=== PATIENT | female | born 1995 | race Caucasian/White ===

== ENCOUNTER 2016-12-22 14:36 | Inpatient (IN) | payer OTHER ==
[~2016-12-22] VITALS: Ht 154.9 cm; Wt 65.4 kg
[~2016-12-22 14:36] MED LIST: NIFE60TA7 PO; NITR-58 PO; PHEN-537 PO
[2016-12-22 14:47] VITALS: BP 163/109; PULSE 76; RESP 20; Ht 154.9 cm; Wt 65.4 kg
[2016-12-22] MEDS ORDERED: PREN-19 PO (15:32)
[2016-12-22] MEDS ORDERED: LABE300T PO (15:33)
[2016-12-22 15:43] LABS: BASOPHILS % 0.3 % (0.0-2.0); EOSINOPHILS # 0.1 10^3/ul (0.0-0.5); EOSINOPHILS % 0.8 % (0.0-7.0); HEMOGLOBIN 11.5 g/dl (12.0-16.0); LYMPHOCYTES # 2.8 10^3/ul (0.8-2.9); LYMPHOCYTES % 22.3 % (15.0-51.0); MEAN CORPUSCULAR VOLUME 85.8 fl (82.0-101.0); MEAN PLATELET VOLUME 8.9 fl (7.4-10.4); MONOCYTE # 0.9 10^3/ul (0.3-0.9); MONOCYTES % 7.2 % (0.0-11.0); NEUTROPHIL # 8.8 10^3/ul (1.6-7.5); NEUTROPHILS % 69.4 % (39.0-77.0); PLATELET COUNT 256 10^3/UL (140-440); RED BLOOD COUNT 3.84 10^6/ul (4.20-5.40); RED CELL DISTRIBUTION WIDTH 12.4 % (11.5-14.5); UNCORRECTED WBC 12.7 10^3/ul (4.8-10.8); WHITE BLOOD COUNT 12.7 10^3/ul (4.8-10.8)
[2016-12-22 15:53] LABS: INR 0.99; PROTIME 13.1 Sec (12.2-14.2)
[2016-12-22 15:55] LABS: ADD UMIC YES; URINE BILIRUBIN (Dip) 1+ (NEGATIVE); URINE BLOOD (Dip) NEGATIVE (NEGATIVE); URINE COLOR YELLOW (YELLOW); URINE GLUCOSE (Dip) NEGATIVE (NEGATIVE); URINE KETONES (Dip) TRACE (NEGATIVE); URINE LEUKOCYTE ESTERASE (Dip) 1+ (NEGATIVE); URINE NITRITE (Dip) NEGATIVE (NEGATIVE); URINE TOTAL PROTEIN (Dip) 1+ (NEGATIVE); URINE UROBILINOGEN (Dip) 0.2 E.U./dL (0.1-1.0)
[2016-12-22 15:56] LABS: ALBUMIN 3.1 g/dl (3.3-4.9)
[2016-12-22 15:57] LABS: POTASSIUM 4.1 mmol/L (3.5-5.1)
[2016-12-22 15:59] LABS: ALBUMIN/GLOBULIN RATIO 0.83; CREATININE 0.7 mg/dl (0.44-1.00); TOTAL PROTEIN 6.8 g/dl (6.1-8.1)
[2016-12-22 16:00] LABS: CALCIUM 9.1 mg/dl (8.4-10.2); URIC ACID 5.7 mg/dl (3.1-7.9)
[2016-12-22 16:03] LABS: ICTOTEST NEGATIVE (NEGATIVE)
[2016-12-22 16:05] LABS: CONDITION 1
[2016-12-22 16:06] LABS: BACTERIA,URINE RARE; MUCUS,URINE OCCASIONAL; SQUAMOUS EPITHELIAL CELL,UR FEW; URINE RBCS 0-2 /HPF (0)
[2016-12-22] MEDS ORDERED: hydrALAzine 20 MG INJ IV ONE ×2 (16:30→17:25)
[2016-12-22] MEDS: LACTATED RINGER'S 1,000 ML IV SCH (16:58)
[2016-12-22] MEDS ORDERED: MAGNESIUM SULFATE 4 GM/100 ML 100 ML IV SCH (17:30)
[2016-12-22] MEDS ORDERED: CA GLUCONATE (GM) 10% 10ML INJ IV PRN (17:30)
[2016-12-22] MEDS: MAGNESIUM SULFATE 20 GM/500 ML 500 ML IV SCH (18:14)
[2016-12-22] MEDS ORDERED: ACETAMINOPHEN 325 MG TAB PO PRN (20:00)
[2016-12-22] MEDS: RANITIDINE 150 MG TAB PO SCH (20:46)
[2016-12-22] MEDS: LABETALOL 100 MG TAB PO SCH (20:55)
--- NOTE | 2016-12-22 20:55 | RADRPT ---
PROCEDURE: US OB biophysical profile. CLINICAL INDICATION: High blood pressure TECHNIQUE: Multiple sonographic images of the pelvis were obtained. The images were reviewed on a PACS workstation. COMPARISON: No pertinent prior examinations were submitted for comparison. FINDINGS: There is a single viable intrauterine gestation. Cardiac activity is present with 126 beats per min iqugmiut. There is a vertex presentation. The placenta is anterior. There is a normal amount of amniotic fluid with an KRYSTAL = 9.2 cm. The cervix is closed, measuring 3.6 cm in length. Biophysical profile: movement 2/2 tone 2/2. breathing 2/2 KRYSTAL 2/2 Total 07/02 IMPRESSION: Normal biophysical profile. RPTAT: HIKT . .Bijan Gandhi MD, Date Time Electronically viewed and signed by .Bijan Gandhi MD, on 12/22/2016 20:55 .T/
[2016-12-22] MEDS ORDERED: METHYLDOPA 250 MG TAB PO SCH (22:00)
[2016-12-22] MEDS ORDERED: CITRIC ACID/NA CITRATE 30 ML CUP PO ONE (22:00)
[2016-12-22] MEDS: FAMOTIDINE 20 MG INJ IV SCH (22:08)
[2016-12-22] MEDS ORDERED: ONDANSETRON 4 MG INJ IV STA (22:28)
[2016-12-22] MEDS ORDERED: ACETAMINOPHEN 1000MG/100ML IV 100 ML IVPB ONE (22:30)
[2016-12-23] MEDS: LACTATED RINGER'S 1,000 ML IV SCH ×3 (02:20→23:51)
[2016-12-23] MEDS: MAGNESIUM SULFATE 20 GM/500 ML 500 ML IV SCH ×3 (04:18→23:20)
[2016-12-23] MEDS: LABETALOL 100 MG TAB PO SCH ×3 (04:59→17:51)
--- NOTE | 2016-12-23 05:35 | HP ---
DATE OF ADMISSION: 12/22/2016 HISTORY OF PRESENT ILLNESS: The patient is a 21-year-old 1 with intrauterine at 29 weeks 6 days with chronic hypertension, poorly controlled. The patient was diagnosed with chronic hypertension at the age of 19. The time of diagnosis, I believe, was in the emergency room setting. She was given 1 prescription for blood pressure medications. She took that course but did not have any followup. As there were no refills on that medication, she did not take any further medications until she was . During this , she has gone to [facility] and was initiated on nifedipine there. The nifedipine gave her heart palpitations, but she states she did take it regularly, even with the heart palpitations, and she said that the nifedipine did not really bring her blood pressure down much, although her blood pressure was better than it is now. Her next contact with care was in the month of November. She say this was due to nsurance issues as thugh she has [facility] she state she doesn't have maternity coverage so she had to get [facility] and she now has a [facility] HMO. She went to [facility]. She has had 1 visit there when seen by the doctor on 12/14/2016. She had some lab work done there on 12/06/2016. Initial PIH panel was all normal. Liver function tests and platelets were fine. She had a 24-hour urine collection completed on 12/06/2016 which showed total protein of 221 with total volume collected of 540 mL (?). The patient was admitted to [facility] from 12/14/2016 to 12/17/2016. Her blood work done there was normal. She had another 24-hour urine collection which showed a total protein of 96 with a total volume collected of 1200 mL (?). Again, a low total volume for a normal 24-hour urine collection. When asked if the patient had forgotten to collect any of her volume at home and at the hospital, she swears she just does not pee very much and that is all she had and that she never forgot to give a specimen or keep a specimen. She had an EKG at the hospital that showed ST and T-wave abnormalities, and she had an echo that was normal. She was sent for a perinatology consultation on 12/13/2016 with [facility] with a complete OB ultrasound which showed normal anatomy and size equal to dates. Before she saw the doctor , they gave her labetalol 200 three times a day. That prescription was increased to 300 three times a day when seen by perinatology. That is what she was taking at [facility]. That medication has been tolerated much better than the earlier Nifedipine but, per pt, hasn't helped her BP much. The patient was given 2 steroid injections on 12/14/2016 and 12/15/2016 at [facility]. The patient ended up leaving against medical advice from [facility] due to her not being happy with her care and nonspecific reasons even though the doctor from [facility] was there taking care of her with notes written, etc. She presented here today not because she was feeling bad but because of the knowledge that she had high blood pressure and she needed additional care. She has her prescription for labetalol with her. Her initial blood pressures when she came in were 163/109 and 158/109 with a dose of labetalol due. PAST MEDICAL HISTORY: None. PAST SURGICAL HISTORY: None. ALLERGIES: NO KNOWN DRUG ALLERGIES. As stated, initial blood pressure is 163/109, temperature 97.8. The highest diastolic was 118 here. We gave her the dose of labetalol due at 1500. It did not make a bit of difference. I ended up giving her Hydralazine 5 mg slow IV push, and that did not make a difference. I gave her another 10 about 20 minutes later, and that dropped her blood pressure down into the 130s/80s. Blood tests, ALT and AST 30 and 15. Platelets 256,000. Uric acid here is 5.7 compared to 4.9 on 12/14/2016. A biophysical profile was 8/8. KRYSTAL 9.2. Cervical length 3.6. Cervical length was done as the patient stated on previous exam her cervix was open 1 cm. She did not say anything about effacement. She did not know what that meant. That could not be found in the [place] records. All other lab work is normal. On NST, there are no signs of uterine contractions. The tracing initially looked good. Occasionally she had some heart rate decelerations with prompt return to baseline however. Sometimes they were noted when the patient was sitting upright with much improvement when she was laid on her left lateral position. Otherwise, the heart tracing was reactive and appropriate for a 30-week . ASSESSMENT: 1. Intrauterine at 29 weeks 6 days. 2. Chronic hypertension, poorly controlled. PLAN: Repeat the 24-hour urine collection with strict collection of fluids. Magnesium sulfate as seizure prophylaxis. The patient already received her 2 doses of betamethasone at [place] on 12/14/2016 and 12/15/2016. Neonatology consultation, perinatology consult so that they are aware of her presence. Introduction of Aldomet as a possible alternative medication for control of her blood pressure medications as the patient has not had continual care. There is an issue with compliance of medications as well as the effectiveness of them. I believe her labetalol initially worked and then it was not working at the hospital, and Aldomet has not been tried. We can go up on the labetalol up to a max of 2400 per day or the Aldomet can have a max of 3,000 per day. My thought was to add Aldomet 250 twice a day to provide better control of her blood pressures and possibly even switch her over to that if it seems to be more effective. Another issue is that the pt suffer from anxiety and on occasion needs Xanax. One reason she left [place] was because one doctor told her she could have it and the next said absolutely not. I had a long discussion with the patient and with her aunt and the father of the baby regarding long-term risks of uncontrolled blood pressure for the patient alone as well as the risk to the baby, the need for followup care after her for herself to determine if there is any other specific cause of this blood pressure, and the importance of medication not just when she is but also when she is not as she is probably not in the normal range when she is not due to her history. I reiterated the risks of stroke and damage to the kidneys amongst other things. Also Xanax is not a normally prescribed medication during but I feel the benefits could greatly outweigh the risks if she has a anxiety attack both for keeping her BP controlled and keeping her compliant with our plan of care, i.e. the anxiety must be addressed when present. Dictated By: TIERNEY GAMINO/ERA Conf#: [id number] DID#: [id number] J CARLOS
[2016-12-23] MEDS: METHYLDOPA 250 MG TAB PO SCH ×4 (06:00→21:45)
[2016-12-23] MEDS ORDERED: ONDANSETRON 4 MG INJ IV STA (06:04)
[2016-12-23] MEDS ORDERED: ACETAMINOPHEN 1000MG/100ML IV 100 ML IVPB ONE (06:30)
[2016-12-23] MEDS: FAMOTIDINE 20 MG INJ IV SCH ×2 (09:46→21:45)
[2016-12-23] MEDS: RANITIDINE 150 MG TAB PO SCH (09:46)
--- NOTE | 2016-12-23 18:47 | CONS ---
DATE OF ADMISSION: 12/22/2016 DATE OF CONSULTATION: 12/23/2016 REASON FOR CONSULTATION: labor and PIH at 30 weeks. HISTORY OF PRESENT ILLNESS: I was asked to speak to the family by Dr. Mack. Mother was admitted yesterday on 12/22/2016 at 29 and 6/7 weeks. Today, she is 30 weeks. The estimated weight by ultrasound is 1198 grams. She has elevated blood pressure that may have been preexistent. She is presently on Aldomet and labetalol medication. She is also on magnesium. She was previously in [facility] and received 2 doses of betamethasone on 12/14 and 12/15. She also previously to [facility] was treated at [facility] and left both places against medical advice. She denies illnesses, medications, smoking, drugs, alcohol. She is a 21-year-old 1. I spoke in her room with the father of the baby and 2 other family members present. We talked extensively about the risks associated to prematurity, such as developmental delay, as wel l as the acute risks of respiratory problems, feeding difficulties, intracranial hemorrhage, apnea, infection, hyperbilirubinemia, feeding difficulties, and requirements of vascular access via umbilic al and central ways. The usual expectation off on hospital stay until the due date approximately, a nd I encouraged and breast milk production. There were no further questions at the end of the interview. Thank you very much for allowing me to assist in the care of this family. Dictated By: DOTTY CALERO MD AV/NTS Conf#: [id number] DID#: [id number] CC: TIERNEY MACK MD;*EndCC*
[2016-12-23 20:09] LABS: COLLECTION PERIOD 24 hrs
[2016-12-23 20:46] LABS: SCRET 0.7 mg/dl (0.44-1.00)
[2016-12-24] MEDS ORDERED: LABETALOL 100 MG TAB PO SCH ×2 (02:00)
[2016-12-24] MEDS: LABETALOL HCL 20MG INJ IV SCH ×2 (03:10→10:32)
[2016-12-24] MEDS: METHYLDOPA 250 MG TAB PO SCH ×3 (05:42→21:06)
[2016-12-24] MEDS: LACTATED RINGER'S 1,000 ML IV SCH ×2 (08:30→08:52)
[2016-12-24] MEDS: FAMOTIDINE 20 MG INJ IV SCH ×2 (08:52→21:00)
[2016-12-24] MEDS: MAGNESIUM SULFATE 20 GM/500 ML 500 ML IV SCH ×2 (09:20→14:02)
[2016-12-24 10:19] LABS: BARBITURATES NEGATIVE (NEGATIVE); BENZODIAZEPINES NEGATIVE (NEGATIVE); CANNABINOIDS NEGATIVE (NEGATIVE); COCAINE NEGATIVE (NEGATIVE); OPIATES NEGATIVE (NEGATIVE)
--- NOTE | 2016-12-24 15:51 | PN ---
DATE: 12/24/2016 SUBJECTIVE: This patient today has no complaints, no headaches, no blurry vision, no right upper qu adrant pain. There is good movement. OBJECTIVE: VITAL SIGNS: Blood pressure 150s to 160s. Otherwise within normal limits. Category 1 tracing. ASSESSMENT AND PLAN: 30 weeks with chronic hypertension with poorly controlled blood pres sure. Consultation with ____. The magnesium will be discontinued. The patient will be started on labetalol 200 t.i.d. and also continue on her Aldomet 250 t.i.d. and her blood pressure medicati on will be increased as needed to better control her blood pressures. All questions were answered. The patient currently stable. Dictated By: ROMEO ROSAS MD /ERA Conf#: [id number] DID#: [id number]
[2016-12-24 16:17] LABS: BASOPHILS % 0.3 % (0.0-2.0); EOSINOPHILS % 0.3 % (0.0-7.0); HEMATOCRIT 33.1 % (37.0-47.0); HEMOGLOBIN 11.2 g/dl (12.0-16.0); LYMPHOCYTES # 2.1 10^3/ul (0.8-2.9); LYMPHOCYTES % 20.2 % (15.0-51.0); MEAN CORPUSCULAR HEMOGLOBIN 29.7 pg (29.0-33.0); MEAN CORPUSCULAR HGB CONC 33.7 g/dl (32.0-37.0); MEAN CORPUSCULAR VOLUME 88.1 fl (82.0-101.0); MEAN PLATELET VOLUME 8.3 fl (7.4-10.4); MONOCYTE # 0.7 10^3/ul (0.3-0.9); MONOCYTES % 6.8 % (0.0-11.0); NEUTROPHIL # 7.6 10^3/ul (1.6-7.5); NEUTROPHILS % 72.4 % (39.0-77.0); PLATELET COUNT 275 10^3/UL (140-440); RED BLOOD COUNT 3.76 10^6/ul (4.20-5.40); RED CELL DISTRIBUTION WIDTH 12.3 % (11.5-14.5); UNCORRECTED WBC 10.5 10^3/ul (4.8-10.8); WHITE BLOOD COUNT 10.5 10^3/ul (4.8-10.8)
[2016-12-24 16:28] LABS: CONDITION 1
[2016-12-24 16:38] LABS: POTASSIUM 4.2 mmol/L (3.5-5.1)
[2016-12-24 16:40] LABS: CREATININE 0.65 mg/dl (0.44-1.00)
[2016-12-24 16:42] LABS: CALCIUM 7.7 mg/dl (8.4-10.2)
[2016-12-24] MEDS: LABETALOL 200 MG TAB PO SCH (17:24)
[2016-12-24] MEDS ORDERED: LABETALOL HCL 20MG INJ IV SCH (18:00)
[2016-12-24] MEDS ORDERED: LABETALOL HCL 20MG INJ IV ONE (23:05)
[2016-12-25] MEDS ORDERED: LABETALOL HCL 20MG INJ IV ONE
[2016-12-25] MEDS: ZOLPIDEM 5 MG TAB PO PRN (01:03)
[2016-12-25] MEDS: LABETALOL 200 MG TAB PO SCH ×2 (01:03→08:15)
[2016-12-25] MEDS ORDERED: hydrALAzine 20 MG INJ ONE (01:42)
[2016-12-25] MEDS ORDERED: hydrALAzine 20 MG INJ IV ONE (02:00)
[2016-12-25] MEDS: METHYLDOPA 250 MG TAB PO SCH (08:15)
[2016-12-25] MEDS: FAMOTIDINE 20 MG INJ IV SCH (08:40)
[2016-12-25] MEDS: METHYLDOPA 500 MG TAB PO SCH ×2 (12:28→18:38)
--- NOTE | 2016-12-25 13:26 | PN ---
DATE: 12/25/2016 This patient is a 21-year-old 1, para 0 who is about 29 weeks , and she has had chronic elevated blood pressure since age 19, which was 2 years ago. However, during this , her blood pressure was elevated in the range of 180/100. She has been seen in several clinics including [facility] and [facility] and a couple of private clinics [facility]. She came here 2 days ago with elevated blood pressure, and workups were done. Her 24-hour urine protein a couple of times was under 300, around 200 or 189, and never was over 300. Her liver function tests were basically normal. PHYSICAL EXAMINATION: GENERAL: She looks healthy. EARS, NOSE AND THROAT: Appear to be normal. No neck vein distention. No thyromegaly. LUNGS: Clear to auscultation and percussion. ABDOMEN: Soft. heart tone is okay. No deceleration. PELVIC: Pelvic exam was not done. Abdomen. She does not have any contractions. EXTREMITIES: Normal. No edema. No varicosity. Knee jerk reflexes are normal. ASSESSMENT AND PLAN: She has been seen by a perinatologist today. Her blood pressure medication was changed to labetalol 200 mg. Her medication was Aldomet 500 mg q.6 hours and Procardia-XL 30 mg daily, An internal medicine consult is in order.. Dictated By: SINDHU MONIQUE/NTS Conf#: [id number] DID#: [id number] MTDD
[2016-12-25] MEDS: NIFEdipine (XL) 30 MG TAB PO SCH (14:37)
--- NOTE | 2016-12-25 23:38 | CONS ---
DATE OF ADMISSION: 12/22/2016 DATE OF CONSULTATION: 12/25/2016 HISTORY OF PRESENT ILLNESS: The patient is a 21-year-old G1 who was admitted on Saturday with high blood pressure. Initially, she was admitted at [facility] and then [place] with the same complai nt. However, she left against medical advice and subsequently she presented to [facility]. Upon presentation, her blood pressures were in the very severe range. She received IV me dications and subsequently placed on Aldomet 250 mg every 8 hours and IV labetalol 20 mg every 8 amirah rs. Her blood pressures on that regimen were in the moderate range. I saw the patient yesterday an d, as she eventually would need to be discharged home, IV medications would not be the best option f or the patient. At that time, she was stable and the decision was made to discontinue magnesium sul fate and also discontinue labetalol IV and start her on labetalol 200 mg p.o. and continue with the Aldomet. She did well on this regimen overall until late in the evening when she started having sev ere range blood pressure, necessitating twice dosing of IV labetalol, which she did not respond to a nd then IV hydralazine, which finally decreased the blood pressure. She has remained asymptomatic t hroughout. It is important to mention that she has had hypertension for the past 2 years. Initially, she was p laced on blood pressure medication she took for 1 month and then she self-discontinued. After that, she was unable to purchase the medication due to lack of insurance. She has not had workup for her early diagnosis of hypertension as far as she knows. PAST MEDICAL HISTORY: Hypertension for 2 years. Also, apparently she suffers from anxiety disorder . PAST SURGICAL HISTORY: None. REVIEW OF SYSTEMS: Reviewed. They are negative. PHYSICAL EXAMINATION: VITAL SIGNS: Currently, her blood pressure is 120/63. Physical examination deferred. heart tone is reassuring for gestational age. She has no contractions. LABORATORY DATA: Her platelet count, creatinine, AST, and ALT are normal. Only slight elevation of ALT. A 24-hour urine for protein resulted today with about 720 mg. IMPRESSION: 1. Intrauterine with chronic hypertension and superimposed preeclampsia. 2. Worsening hypertension unresponsive to the labetalol p.o. and labetalol IV. Asymptomatic. 3. Anxiety disorder without any definite diagnosis, but the patient says that she has some anxiety issues in general. She is currently at 30 weeks and 2 days and also she received betamethasone about 12/15/2016 when sh lizzy was admitted at [place]. RECOMMENDATIONS: Increase Aldomet to 500 mg every 6 hours. Discontinue the labetalol p.o. Start P rocardia-XL 30 mg daily and this dose to be started about 3:00 p.m. Blood pressures are best to be kept between 130s to 160s over diastolic of 70s to 90s. Estimated fe kae weight, if it is not already done. NICU consult. Continuous heart tone monitoring. I do recommend to consult internal medicine for the patient to have overall workup to assess whether the re is a reason for early diagnosis of hypertension. Dictated By: RELL CHRISTENSEN MD ST/NTS Conf#: [id number] DID#: [id number] CC: TIERNEY MACK MD;*EndCC*
[2016-12-26] MEDS: METHYLDOPA 500 MG TAB PO SCH ×2 (00:01→06:30)
[2016-12-26] MEDS: ZOLPIDEM 5 MG TAB PO PRN (00:02)
[2016-12-26 09:04] LABS: BASOPHILS % 0.3 % (0.0-2.0); EOSINOPHILS % 0.4 % (0.0-7.0); HEMATOCRIT 36.6 % (37.0-47.0); HEMOGLOBIN 12.3 g/dl (12.0-16.0); LYMPHOCYTES # 1.9 10^3/ul (0.8-2.9); MEAN CORPUSCULAR HEMOGLOBIN 29.7 pg (29.0-33.0); MEAN CORPUSCULAR HGB CONC 33.6 g/dl (32.0-37.0); MEAN CORPUSCULAR VOLUME 88.2 fl (82.0-101.0); MEAN PLATELET VOLUME 8.3 fl (7.4-10.4); MONOCYTE # 0.6 10^3/ul (0.3-0.9); MONOCYTES % 6.1 % (0.0-11.0); NEUTROPHIL # 7.4 10^3/ul (1.6-7.5); NEUTROPHILS % 74.2 % (39.0-77.0); PLATELET COUNT 276 10^3/UL (140-440); RED BLOOD COUNT 4.14 10^6/ul (4.20-5.40); RED CELL DISTRIBUTION WIDTH 12.5 % (11.5-14.5)
[2016-12-26 09:07] LABS: CONDITION 1
[2016-12-26 09:11] LABS: ALBUMIN 3.3 g/dl (3.3-4.9)
[2016-12-26 09:12] LABS: POTASSIUM 4.5 mmol/L (3.5-5.1)
[2016-12-26 09:14] LABS: ALBUMIN/GLOBULIN RATIO 0.8; BILIRUBIN,INDIRECT 0.2 mg/dl (0-1.1); BILIRUBIN,TOTAL 0.2 mg/dl (0.2-1.3); CREATININE 0.61 mg/dl (0.44-1.00); TOTAL PROTEIN 7.4 g/dl (6.1-8.1)
[2016-12-26 09:15] LABS: CALCIUM 8.8 mg/dl (8.4-10.2); URIC ACID 6.1 mg/dl (3.1-7.9)
[2016-12-26 10:15] VITALS: BP 114/70; PULSE 90
[2016-12-26 11:14] VITALS: BP 105/60; PULSE 88
[2016-12-26] MEDS ORDERED: METHYLDOPA 250 MG TAB PO SCH (12:30)
[2016-12-26] MEDS: NIFEdipine (XL) 30 MG TAB PO SCH (13:55)
[2016-12-26 14:08] LABS: ADD UMIC YES; URINE BILIRUBIN (Dip) NEGATIVE (NEGATIVE); URINE BLOOD (Dip) NEGATIVE (NEGATIVE); URINE COLOR LT. YELLOW (YELLOW); URINE GLUCOSE (Dip) NEGATIVE (NEGATIVE); URINE KETONES (Dip) TRACE (NEGATIVE); URINE LEUKOCYTE ESTERASE (Dip) 1+ (NEGATIVE); URINE NITRITE (Dip) NEGATIVE (NEGATIVE); URINE TOTAL PROTEIN (Dip) 1+ (NEGATIVE); URINE UROBILINOGEN (Dip) 0.2 E.U./dL (0.1-1.0)
[2016-12-26 14:44] LABS: MUCUS,URINE MODERATE; SQUAMOUS EPITHELIAL CELL,UR FEW; URINE RBCS NONE SEEN /HPF (0)
[2016-12-26] MEDS: METHYLDOPA 250 MG TAB PO SCH (19:57)
[2016-12-27] MEDS: METHYLDOPA 250 MG TAB PO SCH ×2 (04:07→11:33)
[2016-12-27] MEDS ORDERED: NIFE30TA2 PO (11:44)
[2016-12-27] MEDS ORDERED: METH-480 PO (11:46)
--- NOTE | 2016-12-28 02:43 | DS ---
DATE OF ADMISSION: 12/22/2016 DATE OF DISCHARGE: 12/27/2016 HISTORY OF PRESENT ILLNESS: This patient is a 21-year-old 1, para 0, with EDC of 03/03/2017, which today makes her about 30 weeks and 4 days. She was admitted in the hospital on 12/22 due to elevated blood pressure. This patient has had chronic elevated blood pressure for years. She has been in several clinics including [facility], and other private clinics; all due to high blood pressure. When she was admitted in the hospital, her blood pressure was in the range of 160/100-105, and the 24-hour urine collection was started, and she was placed on Procardia,XL 30 mg, and betamethasone was given. Gradually improved, and today, which is the fourth day of her hospitalization, her blood pressure is within normal range; about 120 /80, 130/79, 122/75. PHYSICAL EXAMINATION: GENERAL: Everything looks fine. EARS, NOSE, AND THROAT: Appeared normal. CHEST: Clear to auscultation and percussion. HEART: Normal sinus rhythm, no murmur. ABDOMEN: Soft. She does not have any contractions. heart tone is normal. No CVA tenderness. EXTREMITIES: No ankle edema. HOSPITAL COURSE: A prescription was given for Procardia-XL at 30 mg, to take 1 tablet at 2:00 p.m., and also she will continue her Aldomet 500 mg 3 times a day. She is advised to rest at home, and go and see her doctor tomorrow for followup care. Dictated By: SINDHU MONIQUE/NTS Conf#: [id number] DID#: [id number] MTDD
== END 2016-12-27 12:30 | disposition home or self-care (01) | DRG 778 ==
LOC: OBT 14:36 → L-D 14:39 → OBT 16:45 → L-D 19:43
PROVIDERS: ADMIT Obstetrics & Gynecology; ATTEND Obstetrics & Gynecology
DX: O60.03 Preterm labor without delivery, third trimester (principal); O10.013 Pre-existing essential hypertension complicating pregnancy, third trimester; Z3A.30 30 weeks gestation of pregnancy
CPT/HCPCS: 36415; 76817; 76818; 80048; 80053; 80307; 81001; 81003; 82575; 83735; 84156; 84560; 85025; 85610; 85730; 86592; 86850; 86900; 86901; 87340; 96360; G0463; J0131; J0360; J2405; J3475; J7120

== ENCOUNTER 2017-01-23 20:17 | Inpatient (IN) | payer OTHER ==
[~2017-01-23] VITALS: Ht 154.9 cm; Wt 83.9 kg
[~2017-01-23 20:17] MED LIST changes: +METH-480 PO; +NIFE30TA2 PO; -NIFE60TA7 PO; -NITR-58 PO; -PHEN-537 PO; +PREN-19 PO
[2017-01-23 20:48] VITALS: Ht 154.9 cm; Wt 83.9 kg
[2017-01-23 20:49] VITALS: BP 185/135; PULSE 105; RESP 18
--- NOTE | 2017-01-23 21:20 | RADRPT ---
PROCEDURE: OB ultrasound for biophysical profile CLINICAL INDICATION: Biophysical profile. . TECHNIQUE: Multiple sonographic images of the pelvis were obtained. Transabdominal view of the gr avid uterus are available for review. The images were reviewed on a PACS workstation. COMPARISON: Pelvic ultrasound 12/22/2016 FINDINGS: Single intrauterine gestation. Presentation: Cephalic. Partially visualized placenta: Anterior. breathing movement = 2/2 tone = 2/2 motion = 2/2 KRYSTAL = 2/2 KRYSTAL = 11.2 cm heart rate: 139 beats per minute IMPRESSION: Single intrauterine gestation. Biophysical profile 07/02 RPTAT: AADD .Campbell Huggins MD, MD Date Time Electronically viewed and signed by .Campbell Huggins MD, on 01/23/2017 21:20 .B/
--- NOTE | 2017-01-23 21:22 | RADRPT ---
PROCEDURE: Obstetrical ultrasound. CLINICAL INDICATION: , evaluation. Pelvic pain. TECHNIQUE: Transabdominal sonographic images of the pelvis are obtained. COMPARISON: Pelvic ultrasound 12/22/2016 FINDINGS: Single intrauterine gestation. There is a cephalic presentation. Measurements were made in order to determine age. The results are as follows: BPD = 8.43 cm HC = 30.29 cm AC = 29.77 cm FL = 6.60 cm Heart rate = 154 beats per minute The placenta is anterior. There is no evidence for an abruption or placenta previa. Ovaries are not visualized. IMPRESSION: Single intrauterine gestation of approximately 33 weeks 6 days by ultrasound criteria. Estimated weight = 2283 g; 27 percentile for estimated ultrasound age. RPTAT: AADD .Campbell Huggins MD, Date Time Electronically viewed and signed by .Campbell Huggins MD, on 01/23/2017 21:21 .B/
[2017-01-23] MEDS: LABETALOL HCL 20MG INJ IV PRN ×2 (21:26→22:07)
[2017-01-23] MEDS ORDERED: CA GLUCONATE (GM) 10% 10ML INJ IV PRN (21:30)
[2017-01-23] MEDS ORDERED: MAGNESIUM SULFATE 4 GM/100 ML 100 ML IV SCH (21:30)
[2017-01-23] MEDS: LACTATED RINGER'S 1,000 ML IV SCH (21:30)
[2017-01-23 21:51] LABS: ADD SCAN DIFF NO
[2017-01-23 21:55] LABS: BASOPHILS % 0.3 % (0.0-2.0); EOSINOPHILS # 0.1 10^3/ul (0.0-0.5); EOSINOPHILS % 0.8 % (0.0-7.0); HEMATOCRIT 34.6 % (37.0-47.0); HEMOGLOBIN 12.1 g/dl (12.0-16.0); LYMPHOCYTES # 3.6 10^3/ul (0.8-2.9); LYMPHOCYTES % 26.3 % (15.0-51.0); MEAN CORPUSCULAR HEMOGLOBIN 29.9 pg (29.0-33.0); MEAN CORPUSCULAR VOLUME 85.4 fl (82.0-101.0); MEAN PLATELET VOLUME 10.6 fl (7.4-10.4); MONOCYTE # 0.8 10^3/ul (0.3-0.9); NEUTROPHIL # 9.1 10^3/ul (1.6-7.5); NEUTROPHILS % 66.2 % (39.0-77.0); PLATELET COUNT 236 10^3/UL (140-415); RED BLOOD COUNT 4.05 10^6/ul (4.20-5.40); RED CELL DISTRIBUTION WIDTH 12.6 % (11.5-14.5); WHITE BLOOD COUNT 13.7 10^3/ul (4.8-10.8)
[2017-01-23 21:59] LABS: ADD UMIC YES; URINE BILIRUBIN (Dip) 1+ (NEGATIVE); URINE BLOOD (Dip) 2+ (NEGATIVE); URINE COLOR YELLOW (YELLOW); URINE GLUCOSE (Dip) NEGATIVE (NEGATIVE); URINE KETONES (Dip) TRACE (NEGATIVE); URINE LEUKOCYTE ESTERASE (Dip) NEGATIVE (NEGATIVE); URINE NITRITE (Dip) NEGATIVE (NEGATIVE); URINE TOTAL PROTEIN (Dip) 4+ (NEGATIVE); URINE UROBILINOGEN (Dip) 1.0 E.U./dL (0.1-1.0)
[2017-01-23] MEDS ORDERED: METHYLERGONOVINE 0.2 MG INJ IM PRN (22:00)
[2017-01-23] MEDS ORDERED: CEFAZOLIN 2 GM/50 ML (PMX) 50 ML IV SCH (22:00)
[2017-01-23] MEDS ORDERED: MISOPROSTOL 200 MCG TAB PR PRN (22:00)
[2017-01-23] MEDS ORDERED: OXYTOCIN 30 UNITS/LR 500 ML IV PRN (22:00)
[2017-01-23] MEDS ORDERED: CARBOPROST 250 MCG INJ IM PRN (22:00)
[2017-01-23] MEDS ORDERED: OXYTOCIN 30 UNITS/LR 500 ML IV SCH (22:00)
[2017-01-23 22:01] LABS: INR 0.96; PROTIME 12.8 Sec (12.2-14.2)
[2017-01-23 22:02] LABS: PARTIAL THROMBOPLASTIN TIME 26.8 Sec (25.0-35.0)
[2017-01-23 22:03] LABS: ALBUMIN 2.2 g/dl (3.3-4.9); POTASSIUM 3.9 mmol/L (3.5-5.1)
[2017-01-23 22:06] LABS: ALBUMIN/GLOBULIN RATIO 0.64; CREATININE 0.94 mg/dl (0.44-1.00); TOTAL PROTEIN 5.6 g/dl (6.1-8.1); URIC ACID 6.9 mg/dl (3.1-7.9)
[2017-01-23 22:07] LABS: CALCIUM 7.6 mg/dl (8.4-10.2)
[2017-01-23 22:07] LABS: ICTOTEST NEGATIVE (NEGATIVE)
[2017-01-23 22:14] LABS: BACTERIA,URINE FEW; SQUAMOUS EPITHELIAL CELL,UR MODERATE
[2017-01-23] MEDS ORDERED: FAMOTIDINE 20 MG INJ ONE (22:25)
[2017-01-23] MEDS ORDERED: METOCLOPRAMIDE 10 MG INJ ONE (22:25)
[2017-01-23] MEDS ORDERED: hydrALAzine 20 MG INJ ONE (22:25)
[2017-01-23] MEDS: MAGNESIUM SULFATE 20 GM/500 ML 500 ML IV SCH (22:48)
[2017-01-23] MEDS ORDERED: PHENYLephrine (100 MCG/ML) 5ML SYG ONE (23:00)
[2017-01-23] MEDS ORDERED: FENTAnyl 50 MCG/ML VIAL ONE (23:00)
[2017-01-23] MEDS ORDERED: morphine SULFATE/PF (10 MG/10 ML) INJ ONE (23:00)
[2017-01-23] MEDS ORDERED: DEXAMETHASONE 4 MG/ML 1 ML INJ ONE (23:21)
[2017-01-23] MEDS ORDERED: ONDANSETRON 4 MG INJ ONE (23:21)
[2017-01-23] MEDS ORDERED: DIPHENHYDRAMINE 50 MG INJ ONE (23:46)
--- NOTE | 2017-01-23 23:48 | PREOPHP ---
DATE OF ADMISSION: 01/23/2017 HISTORY OF PRESENT ILLNESS: A 21-year-old female, 1, para 0, estimated date of delivery 07/2017, at 34-plus weeks' gestation is admitted due to elevated blood pressure. The patient with h istory of chronic hypertension, and the patient has had superimposed preeclampsia. The patient has had care at [facility]. The patient had an admission in [facility] due to elevated blood pressure for antepartum in 11/2016. The patient has recently bee n noncompliant with her visits. The patient was on Procardia and ____. The patient says t hat recently she had run out of medication and she had not been taking her antihypertensive medicati on. PAST MEDICAL HISTORY: Chronic hypertension. ALLERGIES: NO KNOWN ALLERGIES. FAMILY HISTORY: Noncontributory. PHYSICAL EXAMINATION: VITAL SIGNS: The patient is afebrile. Blood pressure systolic 180s, diastolic 130s. HEAD, NECK AND CHEST: Within normal limits. ABDOMEN: Soft, nontender and gravid. EXTREMITIES: Bilateral edema. IMPRESSION: at 34 weeks and 3 days with chronic hypertension and superimposed preeclampsi a with severe features. PLAN: Intravenous magnesium sulfate for seizure prophylaxis, intravenous labetalol and hydralazine to lowe r blood pressure, delivery by primary section. Case was discussed with Dr. Figueroa, perinato logist, who recommended to deliver the patient. Risks, benefits and alternatives of procedure were explained to the patient. The patient said she understood and gave informed consent for the procedu re. Dictated By: BRIANNA INFANTE MD GD/NTS Conf#: [id number] DID#: [id number]
[2017-01-24] VITALS (10 sets, daily range): BP systolic 144–152; BP diastolic 93–112; PULSE 77–100; RESP 18
[2017-01-24] MEDS ORDERED: OXYTOCIN 30 UNITS/LR 500 ML IV ONE (00:21)
[2017-01-24] MEDS ORDERED: ONDANSETRON 4 MG INJ IV PRN (00:30)
[2017-01-24] MEDS ORDERED: KETOROLAC 30 MG INJ IV PRN (00:30)
[2017-01-24] MEDS ORDERED: HYDROmorphONE 1 MG/ML SYG IV PRN ×2 (00:30)
[2017-01-24] MEDS ORDERED: DIPHENHYDRAMINE 50 MG INJ IV PRN (00:30)
[2017-01-24] MEDS ORDERED: NALOXONE (0.4 MG/ML) INJ IV PRN (00:30)
[2017-01-24] MEDS ORDERED: PROCHLORPERAZINE 10 MG INJ IV PRN (00:30)
[2017-01-24] MEDS: LABETALOL HCL 20MG INJ IV PRN ×7 (01:32→10:59)
--- NOTE | 2017-01-24 03:37 | OPR ---
DATE OF OPERATION: 01/23/2017 PREOPERATIVE DIAGNOSES: at 34 weeks and 3 days with chronic hypertension and superimposed preeclampsia with severe features. POSTOPERATIVE DIAGNOSES: at 34 weeks and 3 days with chronic hypertension and superimpose d preeclampsia with severe features. OPERATION PERFORMED: Primary low transverse section. SURGEON: Brianna Shelby MD DIRECTOR STUDENT UNION: Saray Porter MD ANESTHESIA: Spinal. ANESTHESIOLOGIST: Oliver Moon DO PROCEDURE: The patient was taken to the operating room and placed on the operating table. After gutierres ccessful spinal anesthesia was given, the patient was placed in supine position. The area was prepa red and draped in the usual sterile fashion. Spinal anesthesia was tested and was satisfactory. Us ing a scalpel, Pfannenstiel incision was made about 2 fingerbreadths above the symphysis pubis. The incision was carried to the fascia. The fascia was incised and extended bilaterally with Barton scis sors. Two Blake's were used to separate the fascia from the muscle. The muscle was dissected in m idline down to peritoneum. The peritoneum was bluntly entered. Using a scalpel, a small transverse incision was made on the lower segment of the uterus. Upon entering the uterine cavity, bandage sc issors were inserted to extend the incision bilaterally, curved up. Baby was delivered from cephali c presentation. After suctioning clear of amniotic fluid, the baby was handed off to the t eam in attendance. Apgars were 7 and 9. The placenta was delivered without difficulty. The uterus was closed with #1 Monocryl continuous locked. After assuring hemostasis, both ovaries and tubes w ere inspected, all looked normal. The peritoneal cavity was irrigated with warm saline. Peritoneum was closed with 2-0 Vicryl continuous. The fascia was closed with #1 Vicryl continuous in 2 segmen ts. Subcutaneous tissue was reapproximated with 2-0 plain. The skin was closed with jenn. ESTIMATED BLOOD LOSS: 500 mL COMPLICATIONS: None. COUNTS: All counts were correct. Dictated By: BRIANNA SHELBY MD GD/NTS Conf#: [id number] DID#: [id number]
[2017-01-24] MEDS: METHYLDOPA 250 MG TAB PO SCH ×3 (03:59→20:51)
[2017-01-24] MEDS ORDERED: METHYLDOPA 500 MG TAB PO SCH (06:00)
[2017-01-24] MEDS: LACTATED RINGER'S 1,000 ML IV SCH ×3 (06:59→18:53)
[2017-01-24] MEDS: MAGNESIUM SULFATE 20 GM/500 ML 500 ML IV SCH ×2 (07:28→19:05)
[2017-01-24] MEDS ORDERED: OXYTOCIN 30 UNITS/LR 500 ML IV PRN (08:00)
[2017-01-24] MEDS ORDERED: MISOPROSTOL 200 MCG TAB PR PRN (08:00)
[2017-01-24] MEDS ORDERED: CARBOPROST 250 MCG INJ IM PRN (08:00)
[2017-01-24] MEDS ORDERED: LANOLIN 7 GM TUBE TOP PRN (08:00)
[2017-01-24] MEDS: SENNA/DOCUSATE NA (8.6MG/50MG) TAB PO SCH ×2 (09:33→20:50)
[2017-01-24] MEDS ORDERED: hydrALAzine 20 MG INJ IV PRN (12:30)
[2017-01-24] MEDS ORDERED: LABETALOL 200 MG TAB PO SCH (12:30)
[2017-01-24] MEDS: NIFEdipine (XL) 30 MG TAB PO SCH ×2 (14:19→23:01)
--- NOTE | 2017-01-24 17:53 | QN ---
Documentation Comment No complaint Afebrile VSS Abdomen soft Continue magnesium sulfate for 24 hours BP management per Cardiology. BRIANNA INFANTE MD Jan 24, 2017 17:53
--- NOTE | 2017-01-24 21:07 | RADRPT ---
Echocardiogram Report Patient Name: GUSTAVO MOSELEY Gender: Female Date: 1995 Study Date: 24-Jan-2017 Clinical Review Nurse: ROLDAN JOAN Location: [facility] 2-A Ref. Physician: ERIC ESCOBEDO Quality: Adequate Procedures: Transthoracic echocardiogram with complete 2D, M-Mode, and doppler examination. Indications: Hypertension. 2D/M Mode Doppler Measurement Value Normal Ranges Measurement Value Normal Ranges LVIDd 2D 4.0 3.5 - 5.6 cm AV Peak Dre 1.4 m/sec LVIDs 2D 2.9 2.1 - 4.1 cm AV Peak PG 8.2 mmHg LVPWd 2D 1.0 0.6 - 1.1 cm LVOT Peak Dre 0.9 m/sec IVSd 2D 0.9 0.6 - 1.1 cm LVOT Peak PG 3.6 mmHg AoR Diam 2D 2.2 2.0 - 3.7 cm MV E Peak Dre 0.7 m/sec EDV 2D 71.3 cm3 MV A Peak Dre 0.9 m/sec ESV 2D 24.3 cm3 MV E/A 0.8 MV Decel Time 183 msec MV Decel [place] 4 MV E/A 0.8 Findings Left Ventricle: Normal left ventricular systolic function. Normal left ventricular cavity size. Normal left ventricular wall thickness. Ejection fraction is visually estimated at 65 %. Right Ventricle: Normal right ventricular size. Normal right ventricular systolic function. Left Atrium: The left atrium is normal in size. Right Atrium: The right atrium is normal in size. Mitral Valve: Mild mitral annular calcification. Trace mitral regurgitation. Aortic Valve: Trileaflet aortic valve. Tricuspid Valve: There is trace tricuspid regurgitation. Pulmonic Valve: There is trace pulmonic regurgitation. Pericardium: Normal pericardium with no significant pericardial effusion. Aorta: Normal aortic root. IVC: Normal size and normal respiratory collapse consistent with normal right atrial pressure. Conclusions 1.Normal left ventricular systolic function. Normal left ventricular cavity size. Normal left ventricular wall thickness. Ejection fraction is visually estimated at 65 %. 2.There is trace mitral regurgitation. 3.There is trace tricuspid regurgitation. 4.There is trace pulmonic regurgitation. Electronically Signed By: Eric Escobedo 24-Jan-2017 21:06:28 -0800 Patient Name: GUSTAVO MOSELEY Study Date: 24-Jan-2017 [id number]
[2017-01-24] MEDS: OXYTOCIN 30 UNITS/LR 500 ML IV SCH (21:26)
--- NOTE | 2017-01-24 22:26 | CONS ---
DATE OF ADMISSION: 01/23/2017 DATE OF CONSULTATION: 01/24/2017 REASON FOR CONSULTATION: Uncontrolled hypertension. REQUESTING PHYSICIAN: Brianna Infante MD HISTORY OF PRESENT ILLNESS: Ms. Stewart is a 21-year-old female with a history of a preexisting hypertension, G1, P1 status post delivery on 01/23/2017 for uncontrolled hypertension with superimposed preeclampsia. The patient, postoperatively, has continued to have elevated systolic a nd diastolic blood pressures greater than 100. The patient has been treated with methyldopa and IV push labetalol with some improvement. Given the patient's uncontrolled blood pressures, cardiology consult has been requested. At this time, the patient denies chest pain, shortness of breath, palpitations. PAST MEDICAL HISTORY: As above in HPI. MEDICATIONS CURRENTLY IN HOSPITAL: 1. Senna p.r.n. 2. Lactated Ringer's 125 mL an hour. 3. Methyldopa 500 mg p.o. q.8. 4. Magnesium sulfate IV drip. 5. Labetalol p.r.n. ALLERGIES: NO KNOWN DRUG ALLERGIES. SOCIAL HISTORY: No tobacco, ETOH, or illicit drug use. FAMILY HISTORY: No history of sudden cardiac or early CAD. REVIEW OF SYSTEMS: As above in HPI. CONSTITUTIONAL: No fevers, chills. PULMONARY: No shortness of breath. CARDIOVASCULAR: No current chest pain. GASTROINTESTINAL: No vomiting. GENITOURINARY: Status post delivery. PSYCHIATRIC: Anxiety. NEUROLOGIC: No documented history of CVA. ENDOCRINE: No documented history of diabetes mellitus. PHYSICAL EXAMINATION: VITAL SIGNS: Temperature 97.9, blood pressure most recently 151/98, pulse 86, respiratory rate 18. GENERAL: The patient is alert, awake, in no acute distress. NECK: JVP approximately 9 cm water. CHEST: Fair movement throughout with mildly decreased breath sounds at bases bilaterally. HEART: Regular rate and rhythm. Normal S1, S2, I/ systolic murmur, nondisplaced PMI. ABDOMEN: Status post delivery. EXTREMITIES: No edema, 1+ pulses bilaterally, posterior tibial. LABORATORY DATA: Most recent from the 1st, white blood count 13.7, hemoglobin 12.1, platelet count 236. Sodium 138, potassium 3.9, creatinine 0.9, BUN 17, magnesium 6.1. AST 30, ALT 34. INR 0.96. UA borderline. Hep B surface antigen negative. ELECTROCARDIOGRAM: No electrocardiograms in the chart for my review at this time. IMPRESSION: 1. Hypertension, uncontrolled, preexisting prior to with likely superimposed preeclampsia , status post delivery. 2. Systolic murmur. 3. Status post delivery, postop day #1. 4. Mild leukocytosis. 5. Borderline urinary tract infection. RECOMMENDATIONS: 1. At this time, would check a baseline EKG and a repeat EKG in morning to assess for any significa nt abnormalities and changes. 2. Would check an echo to assess for any end organ damage due to preexisting hypertension and asses s EF post delivery. 3. We will continue the patient's current methyldopa and, at this time, as the patient has had some improvement with IV push labetalol, will transition the patient to p.o. labetalol and follow blood pressures closely with up titration of baseline antihypertensives as necessary to improve overall sy stolic and diastolic blood pressure control. 4. Will additionally check a fasting lipid panel for general risk stratification. Thank you for allowing me to take part in the care of this patient. I will continue to follow along very closely with you. Further recommendations to be made as the patient progresses through her in patient hospital clinical course. Dictated By: ERIC OVIEDO/ERA Conf#: [id number] DID#: [id number] CC: BRIANNA INFANTE MD;*EndCC*
[2017-01-25] VITALS: BP 145/97; PULSE 101; RESP 18
[2017-01-25] MEDS: LACTATED RINGER'S 1,000 ML IV SCH (01:21)
[2017-01-25 04:22] VITALS: BP 128/87; PULSE 91; RESP 18
[2017-01-25] MEDS: METHYLDOPA 250 MG TAB PO SCH ×3 (04:22→21:06)
[2017-01-25] MEDS: OXYCODONE/ACETAMINOPHEN (5/325) TAB PO PRN ×3 (05:44→19:55)
[2017-01-25 08:00] VITALS: BP 136/86; PULSE 91; RESP 20
[2017-01-25 09:46] LABS: ADD SCAN DIFF NO
[2017-01-25 09:48] LABS: BASOPHILS % 0.1 % (0.0-2.0); EOSINOPHILS # 0.1 10^3/ul (0.0-0.5); EOSINOPHILS % 0.4 % (0.0-7.0); HEMATOCRIT 32.5 % (37.0-47.0); HEMOGLOBIN 10.9 g/dl (12.0-16.0); LYMPHOCYTES # 1.8 10^3/ul (0.8-2.9); LYMPHOCYTES % 13.7 % (15.0-51.0); MEAN CORPUSCULAR HEMOGLOBIN 29.5 pg (29.0-33.0); MEAN CORPUSCULAR HGB CONC 33.5 g/dl (32.0-37.0); MEAN CORPUSCULAR VOLUME 87.8 fl (82.0-101.0); MEAN PLATELET VOLUME 10.1 fl (7.4-10.4); MONOCYTE # 0.6 10^3/ul (0.3-0.9); MONOCYTES % 4.5 % (0.0-11.0); NEUTROPHIL # 10.9 10^3/ul (1.6-7.5); NEUTROPHILS % 80.9 % (39.0-77.0); PLATELET COUNT 198 10^3/UL (140-415); RED CELL DISTRIBUTION WIDTH 13.2 % (11.5-14.5); WHITE BLOOD COUNT 13.4 10^3/ul (4.8-10.8)
[2017-01-25] MEDS: SENNA/DOCUSATE NA (8.6MG/50MG) TAB PO SCH ×2 (09:48→21:08)
[2017-01-25] MEDS: NIFEdipine (XL) 30 MG TAB PO SCH (09:48)
[2017-01-25 10:11] LABS: CHOL/HDL RATIO 4.2 RATIO
[2017-01-25 11:30] VITALS: BP 139/93; PULSE 95; RESP 18
--- NOTE | 2017-01-25 13:41 | RADRPT ---
Vent Rate: 77 bpm RR Interval: 0 msec IN Interval: 138 msec QRS Duration: 88 msec QT Interval: 410 msec QTC Interval: 463 msec P-R-T [place]: 53 - 39 - 41 degrees Normal sinus rhythm Normal ECG Electronically Signed By: Wilfred Wood [id number]
--- NOTE | 2017-01-25 13:44 | RADRPT ---
Vent Rate: 0 bpm RR Interval: 0 msec [place] Interval: 0 msec QRS Duration: 0 msec QT Interval: 0 msec QTC Interval: 0 msec P-R-T [place]: 0 - 0 - 0 degrees Electronically Signed By: Wilfred Wood [id number]
--- NOTE | 2017-01-25 14:00 | QN ---
Documentation Comment No complaint Afebrile VSS Abdomen soft Continue care per Cardiology. BRIANNA INFANTE MD Jan 25, 2017 14:00
--- NOTE | 2017-01-25 15:15 | CONS ---
Date/Time of Note Date/Time of Note DATE: 01/25/17 TIME: 15:10 Assessment/Plan Assessment/Plan Chief Complaint/Hosp Course IMPRESSION: 1. Hypertension-slowly improving on oral anti-hypertensives, preexisting prior to with likely superimposed preeclampsia, status post delivery. Echo 01/24 with NL EF 65%/no sig valve abnl 2. Systolic murmur. 3. Status post delivery, postop day #2. 4. Mild leukocytosis. 5. Borderline urinary tract infection. REcc: -Continue current methyldopa -make slight increase to procardia XL and follow BP closely -PRN IVP hydralazine Problems: Consultation Date/Type/Reason Admit Date/Time Jan 23, 2017 at 22:00 Initial Consult Date 01/24/2017 Type of Consultation: Cardiology Reason for Consultation HTN Referring Provider: BRIANNA INFANTE MD Exam/Review of Systems Vital Signs Vitals Vital Signs Date Time Temp Pulse Resp B/P Pulse Ox O2 Delivery O2 Flow Rate FiO2 01/25/17 11:30 97.5 95 18 139/93 Room Air 01/24/17 18:42 98 Intake and Output 01/24/17 01/24/17 01/25/17 15:00 23:00 07:00 Intake Total 1125 ml 790 ml 1000 ml Output Total 375 ml 1500 ml 1300 ml Balance 750 ml -710 ml -300 ml Exam Review of Systems: CONSTITUTIONAL: No fevers, chills. PULMONARY: No sob CARDIOVASCULAR: No chest pain/palpitations GASTROINTESTINAL: No nausea/vomiting. GENITOURINARY: No hematuria/dysuria. MUSCULOSKELETAL: No myagias/arthalgias. PSYCHIATRIC: The patient denies depression. NEUROLOGIC: No weakness Constitutional: alert Psych: no complaints Head: normocephalic ENMT: mucosa pink and moist Neck: jvd (9 cm ), supple Respiratory: diminished breath sounds (at bases/B) Cardiovascular: regular rate and rhythm Gastrointestinal: non-tender, soft Musculoskeletal: muscle tone (normal) Extremities: pitting pedal edema (trace/B) Neurological: other (No focal deficits) Results Result Diagram: 01/25/1715 01/23/177 Results 24 hrs Laboratory Tests Test 01/24/17 18:33 01/25/17 00:40 01/25/17 09:15 Magnesium Level 5.6 *H 6.4 *H 4.0 #H Basophils # 0.0 Basophils % 0.1 Cholesterol Level 282 H Cholesterol/HDL Ratio 4.2 Eosinophils # 0.1 Eosinophils % 0.4 HDL Cholesterol 66 Hematocrit 32.5 L Hemoglobin 10.9 L LDL Cholesterol, Calculated 132 Lymphocytes # 1.8 Lymphocytes % 13.7 L Mean Corpuscular Hemoglobin 29.5 Mean Corpuscular Hemoglobin Concent 33.5 Mean Corpuscular Volume 87.8 Mean Platelet Volume 10.1 Monocytes # 0.6 Monocytes % 4.5 Neutrophils # 10.9 H Neutrophils % 80.9 H Nucleated Red Blood Cells # 0.0 Nucleated Red Blood Cells % 0.0 Platelet Count 198 Red Blood Count 3.70 L Red Cell Distribution Width 13.2 Triglycerides Level 418 H White Blood Count 13.4 H Medications Medications Current Medications Methyldopa (Aldomet) 500 mg Q8H PO Last administered on 01/25/17 11:19; Admin Dose 500 MG; Start 01/24/17 at 04:00 Oxycodone/ Acetaminophen (Percocet (5/ 325)) 1 tab Q4H PRN PO PAIN LEVEL 4-6; Start 01/24/17 at 08:00 Oxycodone/ Acetaminophen (Percocet (5/ 325)) 2 tab Q4H PRN PO PAIN LEVEL 7-10 Last administered on 01/25/17 11:24; Admin Dose 2 TAB; Start 01/24/17 at 08:00 Simethicone (Mylicon) 160 mg Q8H PRN PO DISTENSION/GAS/BLOATING; Start 01/24/17 at 08:00 Senna/Docusate Sodium (Senokot-S) 1 tab BID PO Last administered on 01/25/17 09 :48; Admin Dose 1 TAB; Start 01/24/17 at 09:00 Diphtheria/ Tetanus/Acell Pertussis 0.5 ml 0.5 ml ONCE ONCE IM* ; Start 01/27/17 at 09:00; Stop 01/27/17 at 09:01 Oxytocin/Lactated Ringer's 500 ml @ 0 mls/hr ONCE PRN IV For Hemorrhage Management; Start 01/24/17 at 08:00 Carboprost Tromethamine (Hemabate) 250 mcg ONCE PRN [place] VAGINAL BLEEDING; Start 3/2/17 at 08:00 Misoprostol (Cytotec) 1,000 mcg ONCE PRN [place] VAGINAL BLEEDING; Start 01/24/17 at 08:00 Hydralazine HCl (Apresoline) 10 mg Q4H PRN IV SBP>160 DBP>100 Last administered on 01/24/17 20:55; Admin Dose 10 MG; Start 01/24/17 at 12:30 Nifedipine 30 mg 30 mg BID PO Last administered on 01/25/17 09:48; Admin Dose 30 MG; Start 01/24/17 at 14:30 Lactated Ringer's (Lr) 1,000 ml @ 50 mls/hr Q20H IV Last administered on 01:21; Admin Dose 50 MLS/HR; Start 01/25/17 at 01:00 ERIC COY Jan 25, 2017 15:15
[2017-01-25 15:44] VITALS: BP 137/91; PULSE 93; RESP 20
[2017-01-25 21:00] VITALS: BP 136/88; PULSE 86; RESP 19
[2017-01-25] MEDS ORDERED: SALINE 0.65% 45 ML NAS SPRAY NASAL PRN (21:00)
[2017-01-25] MEDS: NIFEdipine (XL) 60 MG TAB PO SCH (22:15)
[2017-01-25] MEDS: GUAIFENESIN/DM 5ML CUP PO PRN (23:25)
[2017-01-26] MEDS: OXYCODONE/ACETAMINOPHEN (5/325) TAB PO PRN ×3 (03:54→16:21)
[2017-01-26 04:00] VITALS: BP 123/81; PULSE 86; RESP 19
[2017-01-26] MEDS: METHYLDOPA 250 MG TAB PO SCH ×3 (04:27→20:09)
[2017-01-26 09:00] VITALS: BP 140/92; PULSE 94; RESP 18
[2017-01-26] MEDS: SENNA/DOCUSATE NA (8.6MG/50MG) TAB PO SCH ×2 (09:02→21:00)
[2017-01-26] MEDS: NIFEdipine (XL) 30 MG TAB PO SCH (09:03)
[2017-01-26] MEDS: GUAIFENESIN/DM 5ML CUP PO PRN (09:03)
[2017-01-26 11:58] VITALS: BP 148/92; PULSE 82; RESP 20
[2017-01-26] MEDS: LACTATED RINGER'S 1,000 ML IV SCH (12:53)
[2017-01-26 15:20] VITALS: BP 128/88; PULSE 76; RESP 18
--- NOTE | 2017-01-26 16:35 | CONS ---
Date/Time of Note Date/Time of Note DATE: 01/26/17 TIME: 16:33 Assessment/Plan Assessment/Plan Additional Assessment/Plan Hypertension BP better Controlled Continue Procardia and Methyldopa Consultation Date/Type/Reason Admit Date/Time Jan 23, 2017 at 22:00 Constitutional: no complaints Psychological: no complaints Social History Smoking Status: Never smoker Exam/Review of Systems Vital Signs Vitals Vital Signs Date Time Temp Pulse Resp B/P Pulse Ox O2 Delivery O2 Flow Rate FiO2 01/26/17 11:58 82 20 148/92 Room Air 01/26/17 09:00 98.8 01/24/17 18:42 98 Intake and Output 01/25/17 01/25/17 01/26/17 15:00 23:00 07:00 Intake Total 400 ml 200 ml Output Total 700 ml Balance -300 ml 200 ml Exam Constitutional: alert, oriented Head: atraumatic, normocephalic Neck: non-tender, supple Respiratory: clear to auscultation Cardiovascular: regular rate and rhythm, systolic murmur Gastrointestinal: nl liver, spleen, non-tender, soft Extremities: normal pulses Results Result Diagram: 01/25/17 0915 01/23/176 Medications Medications Current Medications Methyldopa (Aldomet) 500 mg Q8H PO Last administered on 01/26/17 11:56; Admin Dose 500 MG; Start 01/24/17 at 04:00 Oxycodone/ Acetaminophen (Percocet (5/ 325)) 1 tab Q4H PRN PO PAIN LEVEL 4-6; Start 01/24/17 at 08:00 Oxycodone/ Acetaminophen (Percocet (5/ 325)) 2 tab Q4H PRN PO PAIN LEVEL 7-10 Last administered on 01/26/17 16:21; Admin Dose 2 TAB; Start 01/24/17 at 08:00 Simethicone (Mylicon) 160 mg Q8H PRN PO DISTENSION/GAS/BLOATING; Start 01/24/17 at 08:00 Senna/Docusate Sodium (Senokot-S) 1 tab BID PO Last administered on 01/26/17 09 :02; Admin Dose 1 TAB; Start 01/24/17 at 09:00 Diphtheria/ Tetanus/Acell Pertussis 0.5 ml 0.5 ml ONCE ONCE IM* ; Start 01/27/17 at 09:00; Stop 01/27/17 at 09:01 Oxytocin/Lactated Ringer's 500 ml @ 0 mls/hr ONCE PRN IV For Hemorrhage Management; Start 01/24/17 at 08:00 Carboprost Tromethamine (Hemabate) 250 mcg ONCE PRN IM VAGINAL BLEEDING; Start 01/24/17 at 08:00 Misoprostol (Cytotec) 1,000 mcg ONCE PRN [place] VAGINAL BLEEDING; Start 01/24/17 at 08:00 Hydralazine HCl 10 mg 10 mg Q4H PRN IV SBP>160 DBP>100 Last administered on 01/24 20:55; Admin Dose 10 MG; Start 01/24/17 at 12:30 Lactated Ringer's (Lr) 1,000 ml @ 50 mls/hr Q20H IV Last administered on 01:21; Admin Dose 50 MLS/HR; Start 01/25/17 at 01:00 Nifedipine (Procardia Xl) 60 mg HS PO Last administered on 01/25/17 22:15; Admin Dose 60 MG; Start 01/25/17 at 21:00 Nifedipine (Procardia Xl) 30 mg DAILY PO Last administered on 01/26/17 09:03; Admin Dose 30 MG; Start 01/26/17 at 09:00 Guaifenesin/ Dextromethorphan (Robitussin Dm Liquid Cup) 10 ml Q4H PRN PO COUGH Last administered on 01/26/17 09:03; Admin Dose 10 ML; Start 01/25/17 at 22 :00 Sodium Chloride (Deep Sea) 1 spray PRN PRN NASAL NASAL CONGESTION; Start at 21:00 REECE DUKE M.D. Jan 26, 2017 16:35
[2017-01-26] MEDS ORDERED: LEVALBUTEROL (NEB) 0.63 MG/3 ML AMP HHN ONE (17:00)
--- NOTE | 2017-01-26 19:08 | QN ---
Documentation Comment Patient was noted to have wheezing and ordered to have breathing treatment. Afebrile VSS Abdomen soft Continue post-op care. Continue care per Cardiology. BRIANNA INFANTE MD Jan 26, 2017 19:08
[2017-01-26 20:10] VITALS: BP 128/84; PULSE 91; RESP 16
[2017-01-26] MEDS: NIFEdipine (XL) 60 MG TAB PO SCH (21:00)
[2017-01-26] MEDS: IBUPROFEN 800 MG TAB PO PRN (21:33)
[2017-01-27 00:04] VITALS: BP 123/79; RESP 16
[2017-01-27] MEDS: METHYLDOPA 250 MG TAB PO SCH ×2 (03:59→13:56)
[2017-01-27 04:20] VITALS: BP 133/91; PULSE 86; RESP 20
[2017-01-27] MEDS: OXYCODONE/ACETAMINOPHEN (5/325) TAB PO PRN ×2 (04:23→13:56)
[2017-01-27] MEDS: IBUPROFEN 800 MG TAB PO PRN (05:55)
[2017-01-27 07:46] VITALS: BP 133/94; PULSE 81; RESP 20
[2017-01-27] MEDS ORDERED: DIPHTH/TET/ACEL PERTUSS (ADULT) 0.5 ML VIAL IM* ONE (09:00)
[2017-01-27] MEDS: SENNA/DOCUSATE NA (8.6MG/50MG) TAB PO SCH (10:10)
[2017-01-27] MEDS: NIFEdipine (XL) 30 MG TAB PO SCH (10:10)
--- NOTE | 2017-01-27 11:27 | PD.PPDC ---
HAND ETCHER HELPER Discharge Instruction Diagnosis Final Diagnosis: 1)C/S, delivered; 2)Chronic Hypertension with Superimposed PreEclampsia Condition Patient Condition: Good Diet Diet: Special Diet (low salt) Activity/Restrictions Activity: May Shower Restrictions: No Exercising No Lifting No Driving (until cleared by HAND ETCHER HELPER) No Sexual Activity Nothing in the Vagina No [place] No Tampons, douche Wound/Drain Care Instructions Wound/Drain Care Instructions: Wash with soap and water Keep clean and dry Follow-up Follow-up with Physician: 1, Week/Weeks (for staple removal) Return to clinic for BOOSTER OPERATOR Instructions: Fever greater than 101 Chills Worsening abdominal pain Excessive Vaginal Bleeding More than 2 pads per hour Unable to tolerate diet OB Instructions: Breast Tenderness Depression Blurried Vision Headache Surgical Instructions: Incisional Drainage Incisional Redness CR VELEZ MD Jan 27, 2017 11:27
--- NOTE | 2017-01-27 11:34 | DS ---
Date/Time of Note Date/Time of Note DATE: 01/27/17 TIME: 11:32 Obstetrical Discharge Record Final Diagnosis Final Diagnosis: delivered Other Final Diagnosis Chronic Hypertension with Superimposed PreEclampsia Section Section: Primary Primary Indication Chronic Hypertension with Superimposed PreEclampsia Complications Other (Chronic Hypertension with Superimposed PreEclampsia) Condition on Discharge Physical Assessment Last Vitals: 98.1 81 133/94 Hgb 12.1 on admission-> EBL 500ml -> Hgb 10.9 postop Voiding: Yes Bowel Movement: Yes Breast: Filling Fundus: Firm (1 FB below the umbilicus) Abdomen and Incision: c/d/i with jenn Calf Tenderness: No Patient Condition: Good CR VELEZ MD Jan 27, 2017 11:33
--- NOTE | 2017-01-27 14:51 | CONS ---
Date/Time of Note Date/Time of Note DATE: 01/27/17 TIME: 14:50 Assessment/Plan Assessment/Plan Additional Assessment/Plan Hypertension BP better Controlled Continue Procardia and Methyldopa Consultation Date/Type/Reason Admit Date/Time Jan 23, 2017 at 22:00 Initial Consult Date Type of Consultation: Cardiology Referring Provider: BRIANNA INFANTE MD Exam/Review of Systems Vital Signs Vitals Vital Signs Date Time Temp Pulse Resp B/P Pulse Ox O2 Delivery O2 Flow Rate FiO2 01/27/17 07:46 98.1 81 20 133/94 Room Air 01/26/17 18:35 92 21 Intake and Output 01/26/17 01/26/17 01/27/17 15:00 23:00 07:00 Intake Total 250 ml 500 ml Balance 250 ml 500 ml Exam Constitutional: alert, oriented Head: atraumatic, normocephalic Neck: non-tender, supple Respiratory: clear to auscultation Cardiovascular: regular rate and rhythm Gastrointestinal: nl liver, spleen, non-tender, soft Extremities: normal pulses Results Result Diagram: 01/25/1715 01/23/176 Results 24 hrs Laboratory Tests Test 01/27/17 04:51 Bedside Glucose 91 Medications Medications Current Medications Methyldopa (Aldomet) 500 mg Q8H PO Last administered on 01/27/17 13:56; Admin Dose 500 MG; Start 01/24/17 at 04:00 Oxycodone/ Acetaminophen (Percocet (5/ 325)) 1 tab Q4H PRN PO PAIN LEVEL 4-6 Last administered on 01/27/17 13:56; Admin Dose 1 TAB; Start 01/24/17 at 08:00 Oxycodone/ Acetaminophen (Percocet (5/ 325)) 2 tab Q4H PRN PO PAIN LEVEL 7-10 Last administered on 01/26/17 16:21; Admin Dose 2 TAB; Start 01/24/17 at 08:00 Simethicone (Mylicon) 160 mg Q8H PRN PO DISTENSION/GAS/BLOATING; Start 01/24/17 at 08:00 Senna/Docusate Sodium 1 tab 1 tab BID PO Last administered on 01/27/17 10:10; Admin Dose 1 TAB; Start 01/24/17 at 09:00 Oxytocin/Lactated Ringer's 500 ml @ 0 mls/hr ONCE PRN IV For Hemorrhage Management; Start 01/24/17 at 08:00 Carboprost Tromethamine (Hemabate) 250 mcg ONCE PRN IM VAGINAL BLEEDING; Start 01/24/17 at 08:00 Misoprostol (Cytotec) 1,000 mcg ONCE PRN [place] VAGINAL BLEEDING; Start 01/24/17 at 08:00 Hydralazine HCl 10 mg 10 mg Q4H PRN IV SBP>160 DBP>100 Last administered on 01/24 20:55; Admin Dose 10 MG; Start 01/24/17 at 12:30 Lactated Ringer's (Lr) 1,000 ml @ 50 mls/hr Q20H IV Last administered on 01:21; Admin Dose 50 MLS/HR; Start 01/25/17 at 01:00 Nifedipine (Procardia Xl) 60 mg HS PO Last administered on 01/26/17 21:00; Admin Dose 60 MG; Start 01/25/17 at 21:00 Nifedipine (Procardia Xl) 30 mg DAILY PO Last administered on 01/27/17 10:10; Admin Dose 30 MG; Start 01/26/17 at 09:00 Guaifenesin/ Dextromethorphan (Robitussin Dm Liquid Cup) 10 ml Q4H PRN PO COUGH Last administered on 01/26/17 09:03; Admin Dose 10 ML; Start 01/25/17 at 22 :00 Sodium Chloride (Deep Sea) 1 spray PRN PRN NASAL NASAL CONGESTION; Start at 21:00 Ibuprofen (Motrin) 800 mg Q8 PRN PO PAIN Last administered on 01/27/17 05:55; Admin Dose 800 MG; Start 01/26/17 at 21:15 REECE DUKE M.D. Jan 27, 2017 14:51
== END 2017-01-27 16:00 | disposition home or self-care (01) | DRG 766 ==
LOC: L-D 20:17 → OBT 20:17 → L-D 22:00 → OBT 22:00 → UNDOADMIN 22:00 → L-D 23:04 → PP1 01-24 18:08
PROVIDERS: ADMIT Obstetrics & Gynecology; ATTEND Obstetrics & Gynecology
PROC: 10D00Z1 Extraction of Products of Conception, Low, Open Approach (ICD-10-PCS; principal; 2017-01-23 23:00)
DX: O11.3 Pre-existing hypertension with pre-eclampsia, third trimester (principal); R06.2 Wheezing; Z3A.34 34 weeks gestation of pregnancy; O10.913 Unspecified pre-existing hypertension complicating pregnancy, third trimester; Z37.0 Single live birth
CPT/HCPCS: 76815; 76818; 80053; 80061; 81001; 81003; 82962; 83735; 84560; 85025; 85610; 85730; 86592; 86850; 86900; 86901; 86920; 87340; 90715; 93005; 93306; 94664; 99464; G0463; J0360; J0690; J1100; J1200; J1885; J2274; J2370; J2405; J2590; J2765; J3010; J3475; J7120